=== PATIENT | female | born 1980 | race Caucasian/White ===

== ENCOUNTER → 2017-06-15 | Outpatient (CLI) | payer OTHER ==
[2017-06-15 10:50] LABS: PLATELET COUNT, AUTOMATED 229 K/uL (150-450)
== END ==
LOC: LAB 10:19
PROVIDERS: ATTEND Nurse Practitioner Family
DX: N92.0 Excessive and frequent menstruation with regular cycle (principal); R10.32 Left lower quadrant pain; N94.10 Unspecified dyspareunia; R42 Dizziness and giddiness; R11.0 Nausea
CPT/HCPCS: 36415; 85025

== ENCOUNTER → 2017-06-17 | Outpatient (CLI) | payer OTHER ==
--- NOTE | 2017-06-17 13:48 | RADIOLOGY IMAGING REPORT ---
FACILITY: [facility] PATIENT NAME: Chelle Perez : 1980 MR: [id number] V: [id number] EXAM DATE: ORDERING PHYSICIAN: GURVINDER DUEÑAS TECHNOLOGIST: Location: [facility] - [place] Patient: Chelle Perez : 1980 Visit/Account:[id number] Date of Sevice: 06/17/2017 TRANSVAGINAL NON-OB HISTORY: Menorrhagia TECHNIQUE: Transvaginal ultrasound pelvis. COMPARISON: September 04, 2014 FINDINGS: Uterus: Retroverted; 8.1 cm length x 4.4 cm AP x 4.7 cm transverse. Myometrium: Unremarkable. Endometrium: Endometrium appears thickened; double thickness 25 mm. Cervix: Nabothian cysts. Ovaries: Right - not visualized Left - 3.8 x 2.9 x 5.2 cm. There are two contiguous cysts in the left ovary one measuring 3 x 2 .3 x 1.7 cm one measuring 1.8 x 1.8 x 2.2 cm Blood flow is documented in the left ovary by duplex Doppler ultrasound. Adnexa: Grossly unremarkable. Free pelvic fluid: None. IMPRESSION: Endometrium appears thickened at 25 mm There are two contiguous cysts in the left ovary measuring 3 cm and 2.2 cm Nabothian cysts Right ovary not visualized Report Dictated By: Renee Franco MD at 06/17/2017 1:41 PM Report E-Signed By: Renee Franco MD at 06/17/2017 1:44 PM WSN:[id number]
== END ==
LOC: US 00:47
PROVIDERS: ATTEND Nurse Practitioner Family
DX: N88.8 Other specified noninflammatory disorders of cervix uteri (principal); N83.202 Unspecified ovarian cyst, left side
CPT/HCPCS: 76830

== ENCOUNTER → 2017-07-02 | Outpatient (CLI) | payer OTHER ==
[~2017-07-02] MED LIST: ESCI10TA8 PO; MEDR10TA57 PO; RANI-366 PO; TRAZ-156 PO
== END ==
LOC: LAB 08:28
PROVIDERS: ATTEND Obstetrics & Gynecology
DX: N92.1 Excessive and frequent menstruation with irregular cycle (principal)
CPT/HCPCS: 36415; 84146; 84443